=== PATIENT | female | born 1955 | race Caucasian/White ===

== ENCOUNTER → 2020-07-12 12:34 | Outpatient (CLI) | payer MEDICARE, SELFPAY ==
--- NOTE | 2020-07-12 12:39 | DI.MRI.S_ITS ---
PROCEDURE: MR SHOULDER LT WO CON INDICATIONS: Pain in left shoulder TECHNIQUE: Noncontrast oblique coronal T2 fast spin echo with fat saturation, oblique sagittal T1 spin echo and T2 fast spin echo with fat saturation, axial T1 spin echo and T2 fast spin echo with fat saturation through the shoulder. COMPARISON: None. FINDINGS: Image quality: Excellent. Rotator cuff: There is mild T2 signal elevation throughout the supraspinatus and infraspinatus tendons at the humeral insertion site, extending the musculotendinous junction, indicating tendinopathy. Superimposed low-grade partial-thickness intrasubstance and articular surface tearing involves the mid and posterior supraspinatus tendon at the humeral insertion site. Subscapularis, infraspinatus, and teres minor tendons are intact. Bones and bursae: No acute bone marrow contusions or fractures. Healed fracture deformity of the posterior glenoid. Moderate to high-grade articular cartilage loss involving the posterosuperior glenoid. Moderate acromioclavicular joint degeneration. The acromion demonstrates conventional anatomy, without an os acromiale. No pathologic subacromial-subdeltoid or subcoracoid bursal fluid is present. Capsule and soft tissues: There is irregular high T2 signal intensity within the posterosuperior glenoid labrum. The long head of the biceps tendon demonstrates normal location and low-grade partial-thickness tearing The rotator interval appears normal, without fibrosis. The coracohumeral ligament is normal in thickness. IMPRESSION: 1. Chronic appearing fracture deformity of the posterior glenoid with overlying articular cartilage loss. There is associated posterior labral tearing. 2. Partial thickness biceps tendon tear. 3. Supraspinatus tendinopathy with superimposed low-grade partial-thickness tearing. No full-thickness rotator cuff tear. 4. Acromioclavicular joint osteoarthritis. Dictated by: Marylou Aguirre M.D. on 07/14/2020 at 8:48 Approved by: Marylou Aguirre M.D. on 07/14/2020 at 8:51
== END ==
PROVIDERS: PCP Family Medicine; Referring Provider Family Medicine; Visit Provider Family Medicine
DX: M25.512 Pain in left shoulder (principal); S43.492A Other sprain of left shoulder joint, initial encounter; S46.112A Strain of muscle, fascia and tendon of long head of biceps, left arm, initial encounter; M75.112 Incomplete rotator cuff tear or rupture of left shoulder, not specified as traumatic; M21.822 Other specified acquired deformities of left upper arm; Z87.81 Personal history of (healed) traumatic fracture
CPT/HCPCS: 73221

== ENCOUNTER → 2020-07-17 12:35 | Outpatient (CLI) | payer MEDICARE, SELFPAY | PROVIDERS: PCP Family Medicine; Referring Provider Family Medicine; Visit Provider Family Medicine | DX: Z78.0 Asymptomatic menopausal state (principal); Z82.62 Family history of osteoporosis | CPT/HCPCS: 77080 ==

== ENCOUNTER → 2024-06-27 10:11 | Outpatient (CLI) | payer MEDICARE, SELFPAY ==
--- NOTE | 2024-06-27 10:13 | DI.US.S_ITS ---
PROCEDURE: US ABDOMEN COMPLETE INDICATIONS: abd pain and bloating TECHNIQUE: Real-time scanning was performed of the abdominal and retroperitoneal organs, with image documentation. COMPARISON: None. FINDINGS: Liver: Liver is normal in size and homogeneous in echotexture. The parenchyma is mildly hyperechoic. Gallbladder: Surgically absent. Biliary ducts: Intrahepatic bile ducts are non-dilated. Extrahepatic bile duct caliber measures 6 mm. Normal is 6-7 mm or less in diameter, or 10 mm or less post-cholecystectomy. Pancreas: Visualized portions of the pancreas are sonographically normal. Spleen: Not identified due to suboptimal sonographic windows. Kidneys: Kidneys are normal in size and echotexture. Right kidney measures 8.6 cm long; left kidney measures 9.6 cm long. No hydronephrosis or nephrolithiasis. No solid masses. Aorta: Visualized aorta is normal in caliber at less than 3 cm. Iliacs: Proximal common iliac arteries are normal in caliber at less than 2.5 cm. IVC: Intrahepatic inferior vena cava is patent. Miscellaneous: No free abdominal fluid. IMPRESSION: 1. Mild hepatic steatosis versus underlying hepatocellular disease. 2. Status post cholecystectomy. 3. Asymmetric atrophy of the right kidney. No hydronephrosis. Dictated by: Braulio Bernardo M.D. on 06/27/2024 at 16:49 Approved by: Braulio Bernardo M.D. on 06/27/2024 at 16:51
== END ==
PROVIDERS: PCP Family Medicine; Referring Provider Family Medicine; Visit Provider Family Medicine
DX: R10.84 Generalized abdominal pain (principal); R14.0 Abdominal distension (gaseous); N26.1 Atrophy of kidney (terminal); Z90.49 Acquired absence of other specified parts of digestive tract
CPT/HCPCS: 76700

== ENCOUNTER → 2025-01-22 07:35 | Outpatient (CLI) | payer MEDICARE, SELFPAY ==
--- NOTE | 2025-01-22 08:11 | DI.MRI.S_ITS ---
PROCEDURE: MR CERVICAL SPINE WO CON INDICATIONS: neck pains x three months TECHNIQUE: Noncontrast sagittal T1 spin echo and T2 fast spin echo, sagittal STIR, foraminal oblique sagittal T2 fast spin echo, and axial gradient echo or T2 fast spin echo through the cervical spine. COMPARISON: None. FINDINGS: Image quality: Excellent. Alignment and Curvature: There is normal bony alignment. Bone Marrow: Marrow demonstrates normal overall signal. Spinal Cord: Visualized spinal cord has normal size and signal. No cerebellar tonsillar herniation. Paraspinous Soft Tissues: No paravertebral masses. Prevertebral soft tissues are normal in thickness. C2-C3: Normal appearance. C3-C4: Loss of disc height, degenerative endplate changes and disc desiccation is seen. Central disc herniation with mild effacement of thecal sac anteriorly. No significant neural foraminal narrowing. C4-C5: There is disc dense and loss of disc height. Diffuse disc bulge and bilateral facet hypertrophic changes are seen. No significant central canal stenosis . Mild left-sided neural foraminal narrowing is seen. C5-C6: There is disc desiccation. Mild diffuse disc bulge and superimposed central to right-sided disc herniation is seen with mild central canal stenosis. Bilateral facet hypertrophic changes are seen. Mild to neural foraminal narrowing is noted. C6-C7: There is disc desiccation. Central to left-sided disc herniation and bilateral facet hypertrophic changes. Moderate left-sided neural foraminal narrowing. No significant central canal stenosis. C7-T1: Normal appearance. IMPRESSION: 1. Mild spondylitic changes throughout cervical spine causing mild central canal stenosis and left worse than right bilateral neural foraminal narrowing as detailed above. 2. No marrow edema. No acute cervical spine fracture or dislocation. 3. No abnormal cervical spinal cord signal. Dictated by: Ever Helton M.D. on 01/22/2025 at 9:41 Approved by: Ever Helton M.D. on 01/22/2025 at 9:48
== END ==
LOC: MRI 07:36
PROVIDERS: PCP Physician Assistant; Referring Provider Physician Assistant; Visit Provider Physician Assistant
DX: M47.812 Spondylosis without myelopathy or radiculopathy, cervical region (principal); M50.21 Other cervical disc displacement, high cervical region; M50.321 Other cervical disc degeneration at C4-C5 level; M48.02 Spinal stenosis, cervical region
CPT/HCPCS: 72141